=== PATIENT | female | born 2000 | race Caucasian/White ===

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

== ENCOUNTER 2021-07-02 11:24 | Emergency (ER) | payer OTHER ==
[~2021-07-02] VITALS: Ht 160 cm; Wt 112.0 kg
--- NOTE | ~2021-07-02 | EMS ---
[address] [address] EMS Patient Care Report Name: TINY JIMENEZ Room #: [facility] Ramos#: [id number] Admission: 07/02/21 Attend Phys: Discharge: Date of : 01 Report #: [id number] THIS REPORT FOR: //name// Report Transmitted: 07/02/2021 12:22 EMS Care Summary [place], [place]/[facility] Incident [id number] @ 07/02/2021 10:42 Incident Location [address] [place] [id number] Patient TINY JIMENEZ Female, 20 Years 2000 Patient Address [address] [place] [address] Patient History Behavioral/Psychiatric Disorder,Hypertension (HTN),Depression,Anxiety,Post Traumatic Stress Disorder (PTSD),Hypoglycemia, Patient Allergies Food Allergy,Haldol, Patient Medications Trazodone, Vitamin D, Seroquel, Mirtazapine, Quetiapine, Pantoprazole, Metoprolol, Lexapro, Propranolol, Famotidine, Benztropine, Melatonin, Gabapentin, Chief Complaint Arm pain Disposition Transported No Lights/[place] Reason Sick Person Transported To [facility] [address] [place] [address] EMS Patient Care Report Name: TINY JIMENEZ Room #: [facility] Ramos#: [id number] Admission: 07/02/21 Attend Phys: Discharge: Date of : 01 Report #: [id number] Pt. reports that she has areas of bruising on both her arms that are painful and squishy. She is concerned they might be blood clots. She has no history of blood clots. Patient calls 911 often and goes to the hospital often for various complaints. She has a long mental health history but denies any issues with that currently. Pt. 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 given Initial Vitals @11:15P: 133,R: 18,BP: 142/78,CO: 0,SpO2: 98, @11:09P: 125,R: 20,BP: 136/87,Pain: 0/10,GCS: 15,CO: 1,SpO2: 95,Revised Trauma: 12, Assessments @11:07MENTAL:Place Oriented,Event Oriented,Person Oriented,Time Oriented,SKIN:HEENT:LUNG SOUNDS:ABDOMEN:PELVIS//GI:EXTREMITIES:PULSE:NEURO: Impression Extremity Pain Procedures @11:09 ALS Assessment Response: UnchangedSucceeded Timeline 10:40,Call Received 10:40,Dispatch Notified 10:42,Dispatched 10:45,En Route 11:04,On Scene 11:05,At Patient 11:09,ALS Assessment,Response: UnchangedSucceeded, 11:09,BP: 136/87 M,PULSE: 125,RR: 20 R,SPO2: 95 Ox,ETCO2: ,BG: ,PAIN: 0,GCS: 15, 11:11,Depart Scene 11:15,BP: 142/78 M,PULSE: 133,RR: 18 R,SPO2: 98 Ox,ETCO2: ,BG: ,PAIN: ,GCS: , 11:22,At Destination 11:40,Call Closed Disclaimer [email or web address] Copyright 2021 [employer] [facility] [address] [place] [address] EMS Patient Care Report Name: TINY JIMENEZ [id number] Admission: 07/02/21 Attend Phys: Discharge: Date of : 01 Report #: [id number] This EMS Care Summary contains data elements from the applicable legal record (which may be displayed differently). It is designed to provide pertinent information for the following purposes: continuity of care, clinical quality, and state data reporting. The complete legal record is available to ED staff and administrators of the receiving hospital in [facility]s Patient Tracker. All data is provided "as is."
[~2021-07-02 11:24] MED LIST: BUPROPION XL300 MG PO; FAMOTIDINE 20 M20 MG PO; PROPRANOLOL 20M20 M1 PO; PROTONIX40 M2 PO; SEROQUEL200 MG PO; SEROQUEL300 MG PO
[2021-07-02 13:36] LABS: HEMOGLOBIN 13.5 gm/dL (12.0-15.0); MCH 27.2 pg (26.0-34.0); MCHC 32.9 g/dL (28.0-37.0); MCV 82.6 fL (80.0-100.0); RBC 4.97 mil/uL (4.20-5.00); RDW 15.4 % (10.5-14.5); WBC 7.1 thou/uL (4.0-11.0)
[2021-07-02 13:48] LABS: CALCIUM 9.3 mg/dL (8.5-10.1); POTASSIUM 4.4 mmol/L (3.5-5.1)
[2021-07-02 13:58] LABS: ALBUMIN 3.8 g/dL (3.4-5.0); TOTAL BILIRUBIN 0.2 mg/dL (0.2-1.0); TOTAL PROTEIN 7.8 g/dL (6.4-8.2)
[2021-07-02 17:52] VITALS: BP 131/70
--- NOTE | 2021-07-03 07:49 | EKG ---
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 : 2000 Requested By: Kaela Em Order Number: [id number] MD: Marcus Wilson Measurements Intervals [place] Rate: 69 P: 22 FL: 124 QRS: 31 QRSD: 78 T: 6 QT: 376 QTc: 403 Interpretive Statements Sinus rhythm with sinus arrhythmia Normal tracing compared to ECG 09/21/2020 01:42:16 No significant change was found Electronically Signed On 07-03-2021 7:48:48 VIDEOTAPE EDITOR by Marcus Wilson [email or web address] <ELECTRONICALLY SIGNED> By: Marcus Wilson MD, [facility] 07/03/21 0748 1230 1230 Marcus Wilson MD, FACC /EPI
== END 2021-07-02 18:00 | disposition home or self-care (01) ==
LOC: ER 11:24
PROVIDERS: Nurse Practitioner Family
DX: R07.89 Other chest pain (principal); M79.602 Pain in left arm; M79.601 Pain in right arm; F41.9 Anxiety disorder, unspecified; F32.9 Major depressive disorder, single episode, unspecified; Z90.89 Acquired absence of other organs; Z79.891 Long term (current) use of opiate analgesic; Z79.899 Other long term (current) drug therapy; Z91.018 Allergy to other foods